=== PATIENT | female | born 1950 | race Asian ===

== ENCOUNTER → 2017-02-14 | Outpatient (CLI) | payer BC ==
[~2017-02-14] MED LIST: GABA300C16 PO; GLYB5TAB3 PO; IODIXANOL LOCM 100 ML BTL ONE; METF1000 PO; SIMV20TA PO; SOD CHLORIDE 0.9% 100 ML ONE; VALS160T20 PO
[2017-02-14 12:17] LABS: ADD SCAN DIFF NO
[2017-02-14 12:26] LABS: BASOPHIL # 0.1 10^3/ul (0.0-0.1); BASOPHILS % 0.9 % (0.0-2.0); EOSINOPHILS # 0.1 10^3/ul (0.0-0.5); HEMATOCRIT 33.3 % (37.0-47.0); HEMOGLOBIN 10.5 g/dl (12.0-16.0); LYMPHOCYTES # 2.1 10^3/ul (0.8-2.9); LYMPHOCYTES % 39.6 % (15.0-51.0); MEAN CORPUSCULAR HEMOGLOBIN 27.3 pg (29.0-33.0); MEAN CORPUSCULAR HGB CONC 31.5 g/dl (32.0-37.0); MEAN CORPUSCULAR VOLUME 86.7 fl (82.0-101.0); MEAN PLATELET VOLUME 9.4 fl (7.4-10.4); MONOCYTE # 0.3 10^3/ul (0.3-0.9); MONOCYTES % 5.4 % (0.0-11.0); NEUTROPHIL # 2.8 10^3/ul (1.6-7.5); NEUTROPHILS % 51.9 % (39.0-77.0); PLATELET COUNT 279 10^3/UL (140-415); RED BLOOD COUNT 3.84 10^6/ul (4.20-5.40); RED CELL DISTRIBUTION WIDTH 13.2 % (11.5-14.5); WHITE BLOOD COUNT 5.4 10^3/ul (4.8-10.8)
[2017-02-14 12:38] LABS: ALBUMIN/GLOBULIN RATIO 1.37; BILIRUBIN,INDIRECT 0.4 mg/dl (0-1.1); BILIRUBIN,TOTAL 0.4 mg/dl (0.2-1.3); CALCIUM 9.4 mg/dl (8.4-10.2); CHOL/HDL RATIO 5.1 RATIO; CREATININE 0.71 mg/dl (0.44-1.00); POTASSIUM 4.3 mmol/L (3.5-5.1); TOTAL PROTEIN 6.9 g/dl (6.1-8.1)
== END | disposition home or self-care (01) ==
LOC: LAB 11:48
PROVIDERS: ATTEND Internal Medicine
DX: E11.9 Type 2 diabetes mellitus without complications (principal); I10 Essential (primary) hypertension
CPT/HCPCS: 80053; 80061; 83036; 85025

== ENCOUNTER → 2017-04-10 | Outpatient (CLI) | payer BC ==
[~2017-04-10] MED LIST changes: -IODIXANOL LOCM 100 ML BTL ONE; -SOD CHLORIDE 0.9% 100 ML ONE
--- NOTE | 2017-04-10 20:11 | RADRPT ---
PROCEDURE: XR Chest. CLINICAL INDICATION: Shortness of breath, pneumonia TECHNIQUE: PA and lateral chest x-ray. COMPARISON: 02/19/2015 chest radiograph. FINDINGS: Minimal linear atelectasis in the left midlung and right lung base are unchanged. No pleural effusion or pneumothorax. The cardiomediastinal silhouette is unremarkable. The osseous structures are unremarkable. Vascular calcifications of the aorta are present compatible with atherosclerosis. IMPRESSION: No evidence of acute air space infiltrates. Unchanged from the previous examination. RPTAT: AADD .Gurmeet Leon MD, MD Date Time Electronically viewed and signed by .Gurmeet Leon MD, MD on 04/10/2017 20:11 .B/
== END | disposition home or self-care (01) ==
LOC: RAD 11:51
PROVIDERS: ATTEND Internal Medicine
DX: J18.9 Pneumonia, unspecified organism (principal); R06.02 Shortness of breath
CPT/HCPCS: 71020

== ENCOUNTER → 2017-05-03 | Outpatient (CLI) | payer BC ==
[2017-05-03 11:56] LABS: ADD SCAN DIFF NO
[2017-05-03 11:59] LABS: BASOPHILS % 0.8 % (0.0-2.0); EOSINOPHILS # 0.1 10^3/ul (0.0-0.5); EOSINOPHILS % 2.7 % (0.0-7.0); HEMATOCRIT 31.6 % (37.0-47.0); HEMOGLOBIN 10.3 g/dl (12.0-16.0); LYMPHOCYTES # 1.9 10^3/ul (0.8-2.9); LYMPHOCYTES % 35.8 % (15.0-51.0); MEAN CORPUSCULAR HEMOGLOBIN 28.1 pg (29.0-33.0); MEAN CORPUSCULAR HGB CONC 32.6 g/dl (32.0-37.0); MEAN CORPUSCULAR VOLUME 86.1 fl (82.0-101.0); MEAN PLATELET VOLUME 9.4 fl (7.4-10.4); MONOCYTE # 0.3 10^3/ul (0.3-0.9); MONOCYTES % 6.3 % (0.0-11.0); NEUTROPHIL # 2.9 10^3/ul (1.6-7.5); NEUTROPHILS % 54.2 % (39.0-77.0); PLATELET COUNT 264 10^3/UL (140-415); RED BLOOD COUNT 3.67 10^6/ul (4.20-5.40); RED CELL DISTRIBUTION WIDTH 12.9 % (11.5-14.5); WHITE BLOOD COUNT 5.3 10^3/ul (4.8-10.8)
[2017-05-03 12:19] LABS: ALBUMIN 4.5 g/dl (3.3-4.9); ALBUMIN/GLOBULIN RATIO 1.87; BILIRUBIN,INDIRECT 0.4 mg/dl (0-1.1); BILIRUBIN,TOTAL 0.4 mg/dl (0.2-1.3); CALCIUM 9.2 mg/dl (8.4-10.2); CHOL/HDL RATIO 4.8 RATIO; CREATININE 0.79 mg/dl (0.44-1.00); POTASSIUM 4.4 mmol/L (3.5-5.1); TOTAL PROTEIN 6.9 g/dl (6.1-8.1)
== END | disposition home or self-care (01) ==
LOC: LAB 11:25
PROVIDERS: ATTEND Internal Medicine
DX: E11.9 Type 2 diabetes mellitus without complications (principal); E78.5 Hyperlipidemia, unspecified
CPT/HCPCS: 80053; 80061; 83036; 85025

== ENCOUNTER → 2017-11-27 | Outpatient (CLI) | END | disposition home or self-care (01) ==

== ENCOUNTER → 2018-01-22 | Outpatient (CLI) | END | disposition home or self-care (01) ==

== ENCOUNTER → 2018-02-04 | Outpatient (CLI) | END | disposition home or self-care (01) ==

== ENCOUNTER → 2018-02-19 | Outpatient (CLI) | END | disposition home or self-care (01) ==

== ENCOUNTER → 2018-03-21 | Outpatient (CLI) | END | disposition home or self-care (01) ==

== ENCOUNTER → 2018-04-03 | Outpatient (CLI) | END | disposition home or self-care (01) ==

== ENCOUNTER → 2018-04-08 | Outpatient (CLI) | END | disposition home or self-care (01) ==

== ENCOUNTER → 2018-05-30 | Outpatient (CLI) | END | disposition home or self-care (01) ==

== ENCOUNTER → 2018-06-11 | Outpatient (CLI) | END | disposition home or self-care (01) ==

== ENCOUNTER → 2018-08-02 | Outpatient (CLI) | END | disposition home or self-care (01) ==

== ENCOUNTER → 2018-08-16 | Outpatient (CLI) | END | disposition home or self-care (01) ==

== ENCOUNTER → 2018-08-26 | Outpatient (CLI) | END | disposition home or self-care (01) ==

== ENCOUNTER 2018-08-29 06:05 | Day surgery (SDC) | END 2018-08-29 11:11 | disposition home or self-care (01) ==

== ENCOUNTER → 2018-10-03 | Outpatient (CLI) | END | disposition home or self-care (01) ==

== ENCOUNTER → 2018-12-04 | Outpatient (CLI) | payer BC ==
[~2018-12-04] MED LIST changes: -GLYB5TAB3 PO; +KEFLEX; +LOSA1TAB22 PO; +LOSA50TA14 PO; -METF1000 PO; +METF100010 PO
== END | disposition home or self-care (01) ==
LOC: LAB 14:21
PROVIDERS: ATTEND Internal Medicine
DX: E11.8 Type 2 diabetes mellitus with unspecified complications (principal); E78.5 Hyperlipidemia, unspecified; D64.9 Anemia, unspecified
CPT/HCPCS: 80053; 80061; 83036; 85025

== ENCOUNTER 2018-12-07 19:54 | Inpatient (IN) | payer BC ==
[~2018-12-07] VITALS: Ht 157.5 cm; Wt 64.0 kg
[~2018-12-07 19:54] MED LIST changes: -LOSA1TAB22 PO; -LOSA50TA14 PO
[2018-12-07 19:59] VITALS: Ht 157.5 cm; Wt 64.0 kg
[2018-12-07] MEDS ORDERED: CEFTRIAXONE 1 GM/50 ML (PMX) 50 ML IVPB STA (20:23)
[2018-12-07] MEDS ORDERED: SODIUM CHLORIDE 0.9% 1L BAG IV* STA (20:23)
[2018-12-07] MEDS ORDERED: ONDANSETRON 4 MG INJ IV PRN (21:00)
[2018-12-07] MEDS ORDERED: ACETAMINOPHEN 325 MG TAB PO PRN (21:00)
--- NOTE | 2018-12-07 22:12 | ERD ---
ER Documentation Chief Complaint Chief Complaint fever tonight took tylenol 325mg x2 @1915, lower AP HPI Patient is a 68-year-old female with diabetes who presents with pyelonephritis. The patient was sent by Dr. Sims for admission for pyelonephritis. The patient works as a nurse on the telemetry floor. She has fevers and tried Tylenol. She was shivering. She has lower abdominal pain and back pain for the past few days. ROS All systems reviewed and are negative except as per history of present illness. Medications Home Meds Reported Medications [Keflex] No Conflict Check 08/29/18 Gabapentin* (Gabapentin*) 300 Mg Capsule, 300 MG PO TID 02/28/14 Metformin Hcl* (Metformin Hcl*) 1,000 Mg Tablet, 1000 MG PO BID 02/18/14 Simvastatin* (Zocor*) 20 Mg Tablet, 40 MG PO DAILY 02/05/12 Valsartan* (Diovan*) 160 Mg Tablet, 80 MG PO DAILY 02/05/12 Allergies Allergies: Coded Allergies: No Known Drug Allergies (Verified Allergy, Unknown, 02/25/15) PMhx/Soc History of Surgery: Yes (ADENOIDECTOMY; HYSTERECTOMY; EXP LAP; B/L KNEE REPLACEMENT) Anesthesia Reaction: No Hx Neurological Disorder: No Hx Respiratory Disorders: No Hx Cardiac Disorders: Yes (HTN; HIGH CHOLESTEROL) Hx Psychiatric Problems: No Hx Miscellaneous Medical Probl: No Hx Alcohol Use: No Hx Substance Use: No Hx Tobacco Use: No Smoking Status: Never smoker FmHx Family History: No diabetes Physical Exam Vitals Vital Signs Date Temp Pulse Resp B/P (MAP) Pulse Ox O2 O2 Flow FiO2 Time Delivery Rate 12/07/18 99.3 113 20 136/57 100 19:59 (83) Physical Exam Const: No acute distress Head: Atraumatic Eyes: Normal Conjunctiva ENT: Normal External Ears, Nose and Mouth. Neck: Full range of motion. No meningismus. Resp: Clear to auscultation bilaterally Cardio: Regular rate and rhythm, no murmurs Abd: Soft, non tender, non distended. Normal bowel sounds Skin: No petechiae or rashes Back: No midline or flank tenderness Ext: No cyanosis, or edema Neur: Awake and alert Psych: Normal Mood and Affect Result Diagram: 12/07/18213212/07/182132 Results 24 hrs Laboratory Tests Test 12/07/18 21:33 12/07/18 21:35 White Blood Count 7.2 10^3/ul Red Blood Count 3.56 10^6/ul Hemoglobin 9.5 g/dl Hematocrit 29.8 % Mean Corpuscular Volume 83.7 fl Mean Corpuscular Hemoglobin 26.7 pg Mean Corpuscular Hemoglobin Concent 31.9 g/dl Red Cell Distribution Width 13.7 % Platelet Count 250 10^3/UL Mean Platelet Volume 9.1 fl Immature Granulocytes % 0.400 % Neutrophils % 79.3 % Lymphocytes % 16.6 % Monocytes % 1.5 % Eosinophils % 1.8 % Basophils % 0.4 % Nucleated Red Blood Cells % 0.0 /100WBC Immature Granulocytes # 0.030 10^3/ul Neutrophils # 5.7 10^3/ul Lymphocytes # 1.2 10^3/ul Monocytes # 0.1 10^3/ul Eosinophils # 0.1 10^3/ul Basophils # 0.0 10^3/ul Nucleated Red Blood Cells # 0.0 10^3/ul Prothrombin Time 12.1 Sec Prothrombin Time Ratio 0.9 INR International Normalized Ratio 0.89 Activated Partial Thromboplast Time 28.5 Sec Urine Color YELLOW Urine Clarity CLOUDY Urine pH 5.0 Urine Specific [place] 1.010 Urine Ketones NEGATIVE mg/dL Urine Nitrite NEGATIVE mg/dL Urine Bilirubin NEGATIVE mg/dL Urine Urobilinogen NEGATIVE mg/dL Urine Leukocyte Esterase 2+ Jimena/ul Urine Microscopic RBC 1 /HPF Urine Microscopic WBC 43 /HPF Urine Bacteria FEW /HPF Urine Hemoglobin NEGATIVE mg/dL Urine Glucose NEGATIVE mg/dL Urine Total Protein NEGATIVE mg/dl Sodium Level 135 mmol/L Potassium Level 4.2 mmol/L Chloride Level 103 mmol/L Carbon Dioxide Level 24 mmol/L Anion Gap 8 Blood Urea Nitrogen 18 mg/dl Creatinine 0.84 mg/dl Est Glomerular Filtrat Rate mL/min > 60 mL/min Glucose Level 177 mg/dl Calcium Level 9.4 mg/dl Total Bilirubin 0.4 mg/dl Direct Bilirubin 0.00 mg/dl Indirect Bilirubin 0.4 mg/dl Aspartate Amino Transf (AST/SGOT) 17 IU/L Alanine Aminotransferase (ALT/SGPT) 19 IU/L Alkaline Phosphatase 73 IU/L Troponin I < 0.012 ng/ml Total Protein 7.3 g/dl Albumin 4.0 g/dl Globulin 3.30 g/dl Albumin/Globulin Ratio 1.21 POC Venous Lactate 3.2 mmol/L Current Medications Medications Dose Sig/[place] Start Time Status Last (Trade) Ordered Route PRN Stop Time Admin Dose Reason Admin Sodium 1,940 ml BOLUS OVER 2 12/07/18 DC Chloride HOURS STAT 20:23 (NS) IV* 12/07/18 20:25 Ceftriaxone 50 ml @ ONCE STAT 12/07/18 DC 12/07/18 Sodium 100 mls/hr IVPB 20:23 21:57 12/07/18 20:52 Ondansetron 4 mg BRIDGE ORDER 12/07/18 HCl (Zofran PRN IV 21:00 Inj) NAUSEA/VOMITI 12/08/18 20:59 NG 650 mg ER BRIDGE 12/07/18 12/07/18 Acetaminophen PRN PO 21:00 21:23 (Tylenol .MILD PAIN 12/08/18 20:59 Tab) 1-3 OR TEMP Procedures/MDM EKG read by me: Rate/Rhythm: Regular rate and rhythm at a normal rate Intervals: Normal Impression: No evidence of ischemia or arrhythmia Chest x-ray read by radiology. Sepsis Documentation: Patient's infectious symptoms have not stabilized and the patient is at risk of rapid decompensation. The patient will be admitted for careful hydration, antibiotic therapy, and infectious source control. SEVERE SEPSIS CRITERIA: Infectious source: Pyelonephritis End organ damage indicated by: Lactate greater than 2 SEPSIS MANAGEMENT Time of recognition of sepsis: 2132. Time of recognition of severe sepsis: 2132. Time of recognition of septic shock: No septic shock at this time. 3 HOUR BUNDLE Blood cultures x 2 before broad-spectrum antibiotics: Yes 30 ml/kg NS bolus completed Initial lactate 3.2 Repeat lactate pending SEPTIC SHOCK ASSESSMENT: No lactic acid > 4.0 No persistent hypotension (SBP < 90 or 40 mmHg drop, MAP < 65) despite 30 mL/kg IV fluid bolus VOLUME REASSESSMENT FOR SEPTIC SHOCK: No septic shock at this time PERSISTENT HYPOTENSION TREATMENT: Comfort care no Central line not Required Vasopressor started not required I considered further perfusion assessment with CVP measurement, SCVO2, bedside ultrasound volume assessment, passive leg raise, trial of further fluid bolus. And proceeded with 30 ml/kg fluid bolus of NSS, broad spectrum antibiotics, and admission. The patient will be admitted to the care of Dr. Sims the primary doctor to a medical surgical bed. CRITICAL CARE Critical care time 35 minutes Emergent fluid management while maintaining close respiratory support. Provision of immediate and broad-spectrum antibiotic therapy. Simultaneous assessment for possible sources in order to direct targeted therapy. Consideration for invasive and chemical support to prevent cardiopulmonary collapse. Critical care time is independent of procedures performed. Departure Diagnosis: Primary Impression: Severe sepsis Additional Impression: Pyelonephritis Condition: CHAPIN Mccabe MD Dec 07, 2018 22:12
[2018-12-07] MEDS ORDERED: LOSA1TAB22 PO (23:38)
[2018-12-07] MEDS ORDERED: DEXTROSE 50% 50 ML SYRINGE IV PRN ×2 (23:45)
[2018-12-07] MEDS ORDERED: GLUCOSE GEL 15 GRAM TUBE BUCCAL PRN (23:45)
[2018-12-07] MEDS ORDERED: GLUCOSE GEL 15 GRAM TUBE PO PRN ×2 (23:45)
[2018-12-07] MEDS ORDERED: GLUCAGON 1 MG INJ IM PRN (23:45)
[2018-12-07] MEDS ORDERED: LOSA50TA14 PO (23:49)
[2018-12-08] MEDS ORDERED: ZOLPIDEM 5 MG TAB PO PRN
[2018-12-08] MEDS ORDERED: ONDANSETRON 4 MG INJ IV PRN
[2018-12-08] MEDS ORDERED: morphine 4 MG/ML VIAL IV PRN
[2018-12-08 00:07] VITALS: BP 97/54; PULSE 84; RESP 18
[2018-12-08] MEDS: SOD CHLORIDE 0.45% 1,000 ML IV SCH ×2 (00:20→14:45)
[2018-12-08] MEDS: ACCU-CHEK XX SCH (02:00)
[2018-12-08 08:02] VITALS: BP 116/59; PULSE 81; RESP 18
[2018-12-08] MEDS: GABAPENTIN 300 MG CAP PO SCH ×3 (08:42→20:16)
[2018-12-08] MEDS: LOSARTAN 50 MG TAB PO SCH (08:43)
[2018-12-08] MEDS: INSULIN ASPART [NOVOLOG] 3 ML PEN SC SCH ×4 (08:46→20:18)
[2018-12-08] MEDS ORDERED: NON-FORMULARY/PATIENT OWN MED (Simvastatin* (Zocor*) 40 MG) PO SCH (09:00)
[2018-12-08] MEDS: ACETAMINOPHEN 500 MG TAB PO PRN (13:06)
--- NOTE | 2018-12-08 13:30 | HP ---
DATE OF ADMISSION: 12/07/2018 CHIEF COMPLAINT AND HISTORY OF PRESENT ILLNESS: The patient is a 68-year-old lady, diabetic, hyperte nsive, well known to me for the past several years, presenting with severe fever, chills and flank pa ins and patient was evaluated in the emergency room and was admitted. REVIEW OF SYSTEMS: HEAD: The patient has a recent frontal headaches, visual symptoms, including some blurriness, some p ain over the eyes. It has been progressively getting worse. Pain in the eyes with some blurriness r ecently. No history of glaucoma. ENT: No sinusitis, tonsillitis, or hearing loss. NECK: No history of thyroid disease. CHEST: No bronchitis, . CARDIOVASCULAR: No chest pain, palpitations, shortness of breath. GASTROINTESTINAL: History of perforated bowel several years ago with laparotomy, details not clear. GENITOURINARY: History of recurrent urinary tract infection with pyelonephritis with prior history o f E. coli with extended-spectrum beta-lactamase. workup has been so far unremarkable. 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 She also had a right knee replacement by Dr. Mittal 3 years ago. She has had diabetes for s everal years, along with hypertension and hyperlipidemia. FAMILY HISTORY: Noncontributory. ALLERGIES: NO KNOWN ALLERGIES. MEDICATIONS: Include: 1. Metformin 1000 mg b.i.d. 2. Gabapentin 300 mg t.i.d. 3. Zocor 40 mg daily. 4. Losartan 50 x 12.5, one tablet daily. PHYSICAL EXAMINATION: GENERAL: The patient is an average-built female who is presently in no acute distress. VITAL SIGNS: Temperature 98.2, blood pressure 160/ , O2 saturation 98% on room air. HEENT: Head normocephalic. Mild pallor without cyanosis. Tongue is coated, dry. NECK: Supple. No thyromegaly, or lymphadenopathy. CHEST: Clinically clear. HEART: S1, S2 with no definite gallops. ABDOMEN: Soft, fullness in epigastrium. Bowel sounds are active. EXTREMITIES: No edema. Mild flank tenderness present bilaterally. NEUROLOGIC: No localizing or lateralizing signs. PELVIC, RECTAL, BREAST: Deferred at patient's request. LABORATORY DATA: Initial WBC count is 7.2, hematocrit 29.8, platelet count of 250,000. Sodium 139, potassium 4.5, BUN 14, creatinine 0.85. Serum lactate of 3.2. Chest x-ray shows atelectasis in the left mid lung. IMPRESSION: 1. Patient likely has acute pyelonephritis. 2. Diabetes mellitus type 2, well controlled. 3. Hypertension. 4. Chronic anemia, likely anemia of heart disease. 5. Status post carotid endarterectomy. 6. Hyperlipidemia. PLAN: We will continue the patient on intravenous Rocephin. The patient also has been complaining o f recent headaches. We will proceed to get CT of the brain and consider neurology evaluation if nece ssary. Await urine cultures and decide regarding the antibiotic. Dictated By: PENELOPE PRAKASH MD, SR/RADHA Conf#: [id number] DID#: [id number]
[2018-12-08 15:23] VITALS: BP 127/59; PULSE 90; RESP 18
[2018-12-08] MEDS: CEFTRIAXONE 1 GM/50 ML (PMX) 50 ML IVPB SCH (20:15)
[2018-12-08] MEDS: ATORVASTATIN 20 MG TAB PO SCH (20:15)
[2018-12-08 20:36] VITALS: BP 128/60; PULSE 82; RESP 18
[2018-12-09] MEDS: ACCU-CHEK XX SCH (02:02)
[2018-12-09 02:09] VITALS: BP 137/65; PULSE 84; RESP 18
[2018-12-09] MEDS: SOD CHLORIDE 0.45% 1,000 ML IV SCH ×2 (02:40→22:41)
[2018-12-09 07:21] VITALS: BP 139/65; PULSE 85; RESP 18
[2018-12-09] MEDS: LOSARTAN 50 MG TAB PO SCH (07:57)
[2018-12-09] MEDS: INSULIN ASPART [NOVOLOG] 3 ML PEN SC SCH ×4 (08:02→20:52)
[2018-12-09] MEDS: GABAPENTIN 300 MG CAP PO SCH ×3 (08:06→20:49)
[2018-12-09 13:48] VITALS: BP 150/65; PULSE 91; RESP 18
[2018-12-09] MEDS ORDERED: BARIUM SULF 2% 450 ML BTL (BERRY SMOOTHIE) PO ONE (15:00)
[2018-12-09] MEDS: ACETAMINOPHEN 500 MG TAB PO PRN (15:57)
[2018-12-09] MEDS ORDERED: SOD CHLORIDE 0.9% 100 ML ONE (16:16)
[2018-12-09] MEDS ORDERED: IOHEXOL 300MG/ML 150 ML BTL ONE (16:16)
[2018-12-09 20:12] VITALS: BP 130/60; PULSE 75; RESP 18
[2018-12-09] MEDS: ATORVASTATIN 20 MG TAB PO SCH (20:49)
[2018-12-09] MEDS: CEFTRIAXONE 1 GM/50 ML (PMX) 50 ML IVPB SCH (20:49)
[2018-12-09 20:50] VITALS: BP 196/92; PULSE 78
[2018-12-10] MEDS: ACCU-CHEK XX SCH (02:08)
[2018-12-10 02:17] VITALS: BP 129/72; PULSE 75; RESP 18
[2018-12-10 07:45] VITALS: BP 139/73; PULSE 79; RESP 18
[2018-12-10] MEDS: ENOXAPARIN 30 MG/0.3 ML SYG SC SCH ×2 (09:00→10:59)
[2018-12-10] MEDS: GABAPENTIN 300 MG CAP PO SCH ×3 (09:00→20:54)
[2018-12-10] MEDS: LOSARTAN 50 MG TAB PO SCH (09:08)
[2018-12-10] MEDS: INSULIN ASPART [NOVOLOG] 3 ML PEN SC SCH ×4 (09:13→21:01)
--- NOTE | 2018-12-10 10:12 | CONS ---
Assessment/Plan Assessment/Plan Hospital Course (Demo Recall) 1) UTI due to e.coli +ESBL and possible kidney involvement due to her R flank pain CT abd/pelvis does not show hydronephrosis d/c ceftriaxone and start merrem this e.coli is sensitive to cipro and levo and so can switch to them when patient is ready for d/c I would give a 14 day course for this pt states she was treated for an UTI 2-3 months ago but could not remember what antibiotic she was on start probiotic 2) DM hopefully with effective antibiotic for her infection her sugars will come under better control 3) HTN 4) Hx of DVT from a picc line would avoid picc line at this time Consultation Date/Type/Reason Admit Date/Time Dec 07, 2018 at 20:34 Date of Consultation: Dec 10, 2018 Type of Consult ID Date/Time of Note DATE: 12/10/18 TIME: 10:04 Hx of Present Illness pt had some R flank heaviness for a few days then developed low grade fevers for a few days then a higher fever and she was then admitted to hospital she also had urine frequency but no dysuria. 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 line Home Meds Reported Medications Losartan Potassium* (Losartan Potassium*) 50 Mg Tablet, 50 MG PO DAILY, TAB 12/07/18 Losartan-Hydrochlorothiazide (Losartan-HCTZ) 50-12.5 Mg Tab, 1 TAB PO DAILY, TAB 12/07/18 Gabapentin* (Gabapentin*) 300 Mg Capsule, 300 MG PO TID 02/28/14 Metformin Hcl* (Metformin Hcl*) 1,000 Mg Tablet, 1000 MG PO BID 02/18/14 Simvastatin* (Zocor*) 20 Mg Tablet, 40 MG PO DAILY 02/05/12 Discontinued Reported Medications [Keflex] No Conflict Check 08/29/18 Valsartan* (Diovan*) 160 Mg Tablet, 80 MG PO DAILY 02/05/12 Medications Current Medications Gabapentin (Neurontin) 300 mg TID PO Last administered on 12/09/18at 20:49; Admin Dose 300 MG; Start 12/08/18 at 09:00 Atorvastatin Calcium (Lipitor) 20 mg DAILY@21 PO Last administered on 12/09/18at 20:49; Admin Dose 20 MG; Start 12/08/18 at 21:00 Ondansetron HCl (Zofran Inj) 4 mg Q4H PRN IV NAUSEA AND/OR VOMITING; Start 12/08/18 at 00:00 Acetaminophen (Tylenol Tab) 500 mg Q4H PRN PO MILD PAIN(1-3)OR ELEVATED TEMP Last administered on 12/09/18at 15:57; Admin Dose 500 MG; Start 12/08/18 at 00:00 Morphine Sulfate (morphine) 4 mg Q4H PRN IV SEVERE PAIN LEVEL 7-10; Start 12/08/18 at 00:00 Sodium Chloride 1,000 ml @ 75 mls/hr [id number] IV Last administered on 12/09/18at 22:41; Admin Dose 75 MLS/HR; Start 12/08/18 at 00:00 Zolpidem Tartrate (Ambien) 5 mg HS PRN PO INSOMNIA; Start 12/08/18 at 00:00 Diagnostic Test (Pha) (Accu-Chek) 1 ea 02 XX Last administered on 12/10/18at 02:08; Admin Dose 1 EA; Start 12/08/18 at 02:00 Insulin Aspart (Novolog Insulin Pen) NOVOLOG *MILD* ALGORITHM WITH MEALS BEDTIME SC Last administered on 12/10/18at 09:13; Admin Dose 4 UNIT; Start 12/08/18 at 07:50 Miscellaneous Information 1 ea NOTE XX ; Start 12/07/18 at 23:45 Glucose (Glutose) 15 gm Q15M PRN PO DECREASED GLUCOSE; Start 12/07/18 at 23:45 Glucose (Glutose) 22.5 gm Q15M PRN PO DECREASED GLUCOSE; Start 12/07/18 at 23:45 Dextrose (D50w Syringe) 25 ml Q15M PRN IV DECREASED GLUCOSE; Start 12/07/18 at 23:45 Dextrose (D50w Syringe) 50 ml Q15M PRN IV DECREASED GLUCOSE; Start 12/07/18 at 23:45 Glucagon (Glucagen) 1 mg Q15M PRN IM DECREASED GLUCOSE; Start 12/07/18 at 23:45 Glucose (Glutose) 15 gm Q15M PRN BUCCAL DECREASED GLUCOSE; Start 12/07/18 at 23:45 Losartan Potassium (Cozaar) 50 mg DAILY PO Last administered on 12/10/18at 09:08; Admin Dose 50 MG; Start 12/08/18 at 09:00 Enoxaparin Sodium (Lovenox) 30 mg DAILY SC ; Start 12/10/18 at 09:00 Meropenem/Sodium Chloride 50 ml @ 100 mls/hr Q8 IVPB ; Start 12/10/18 at 14:00; Status UNV Allergies: Coded Allergies: No Known Drug Allergies (Verified Allergy, Unknown, 02/25/15) Past Surgical History haley TKR, R CEA Social History Smoking Status: Never smoker Exam/Review of Systems Exam Vitals Vital Signs Date Temp Pulse Resp B/P (MAP) Pulse Ox O2 O2 Flow FiO2 Time Delivery Rate 12/10/18 98.1 79 18 139/73 98 Room Air 07:45 (95) Intake and Output 12/09/18 12/09/18 12/10/18 1414:59 22:59 06:59 IntakeIntake Total 400 ml 1230 ml BalanceBalance 400 ml 1230 ml Constitutional: alert Eyes: nl sclera ENMT: mucosa pink and moist Neck: supple Respiratory: clear to auscultation Cardiovascular: regular rate and rhythm Gastrointestinal: soft, non-tender, other (mild R CVAT) Extremities: other (1+ pitting edema to LE, no calf tenderness) Neurological: other (non focal) Results Result Diagram: 12/10/18 0506 12/10/18 0506 Results 24hrs Laboratory Tests Test 12/09/18 13:09 12/09/18 19:14 12/09/18 20:47 12/10/18 02:04 Bedside Glucose 227 H 164 255 H 340 H Test 12/10/18 05:06 12/10/18 08:50 White Blood Count 5.4 Red Blood Count 3.50 L Hemoglobin 9.5 L Hematocrit 30.2 L Mean Corpuscular 86.3 Volume Mean Corpuscular 27.1 L Hemoglobin Mean Corpuscular 31.5 L Hemoglobin Concent Red Cell 13.3 Distribution Width Platelet Count 288 Mean Platelet Volume 9.7 Immature 0.600 H Granulocytes % Neutrophils % 50.3 Lymphocytes % 35.9 Monocytes % 9.5 Eosinophils % 3.0 Basophils % 0.7 Nucleated Red Blood 0.0 Cells % Immature 0.030 Granulocytes # Neutrophils # 2.7 Lymphocytes # 1.9 Monocytes # 0.5 Eosinophils # 0.2 Basophils # 0.0 Nucleated Red Blood 0.0 Cells # Sodium Level 139 Potassium Level 4.7 Chloride Level 107 Carbon Dioxide Level 27 Anion Gap 5 Blood Urea Nitrogen 13 Creatinine 0.77 Est Glomerular > 60 Filtrat Rate mL/min Glucose Level 282 H Calcium Level 9.4 Magnesium Level 2.0 Bedside Glucose 266 H Medications Medication Current Medications Gabapentin (Neurontin) 300 mg TID PO Last administered on 12/09/18 20:49; Admin Dose 300 MG; Start 12/08/18 at 09:00 Atorvastatin Calcium (Lipitor) 20 mg DAILY@21 PO Last administered on 12/09/18 20:49; Admin Dose 20 MG; Start 12/08/18 at 21:00 Ondansetron HCl (Zofran Inj) 4 mg Q4H PRN IV NAUSEA AND/OR VOMITING; Start 12/08/18 at 00:00 Acetaminophen (Tylenol Tab) 500 mg Q4H PRN PO MILD PAIN(1-3)OR ELEVATED TEMP Last administered on 12/09/18at 15:57; Admin Dose 500 MG; Start 12/08/18 at 00:00 Morphine Sulfate (morphine) 4 mg Q4H PRN IV SEVERE PAIN LEVEL 7-10; Start 12/08/18 at 00:00 Sodium Chloride 1,000 ml @ 75 mls/hr [id number] IV Last administered on 12/09/18 22:41; Admin Dose 75 MLS/HR; Start 12/08/18 at 00:00 Zolpidem Tartrate (Ambien) 5 mg HS PRN PO INSOMNIA; Start 12/08/18 at 00:00 Diagnostic Test (Pha) (Accu-Chek) 1 ea 02 XX Last administered on 12/10/18 02:08; Admin Dose 1 EA; Start 12/08/18 at 02:00 Insulin Aspart (Novolog Insulin Pen) NOVOLOG *MILD* ALGORITHM WITH MEALS BEDTIME SC Last administered on 12/10/18 09:13; Admin Dose 4 UNIT; Start at 07:50 Miscellaneous Information 1 ea NOTE XX ; Start 12/07/18 at 23:45 Glucose (Glutose) 15 gm Q15M PRN PO DECREASED GLUCOSE; Start 12/07/18 at 23:45 Glucose (Glutose) 22.5 gm Q15M PRN PO DECREASED GLUCOSE; Start 12/07/18 at 23:45 Dextrose (D50w Syringe) 25 ml Q15M PRN IV DECREASED GLUCOSE; Start 12/07/18 at 23:45 Dextrose (D50w Syringe) 50 ml Q15M PRN IV DECREASED GLUCOSE; Start 12/07/18 at 23:45 Glucagon (Glucagen) 1 mg Q15M PRN IM DECREASED GLUCOSE; Start 12/07/18 at 23:45 Glucose (Glutose) 15 gm Q15M PRN BUCCAL DECREASED GLUCOSE; Start 12/07/18 at 23:45 Losartan Potassium (Cozaar) 50 mg DAILY PO Last administered on 12/10/18at 09:08; Admin Dose 50 MG; Start 12/08/18 at 09:00 Enoxaparin Sodium (Lovenox) 30 mg DAILY SC ; Start 12/10/18 at 09:00 Meropenem/Sodium Chloride 50 ml @ 100 mls/hr Q8 IVPB ; Start 12/10/18 at 14:00; Status UNV PIERRE FERRER MD Dec 10, 2018 10:12
[2018-12-10] MEDS: SOD CHLORIDE 0.45% 1,000 ML IV SCH (10:57)
--- NOTE | 2018-12-10 13:02 | PN ---
DATE: 12/09/2018 SUBJECTIVE: The patient complains of mild headache. No nausea, vomiting. Continues with right flan k pain. Denies any dysuria. PHYSICAL EXAMINATION: VITAL SIGNS: Temperature 99.4, blood pressure 150/65, O2 saturation 99% on room air. HEENT: Mild pallor without cyanosis. LUNGS: Revealed decreased breath sounds at right base. HEART: S1, S2 with no definite gallops. ABDOMEN: Soft, nontender. Mild right flank tenderness. EXTREMITIES: No edema. Homans negative. LABORATORY DATA: Blood glucose levels are 291, 223 and 227 today. MICROBIOLOGY: Urine cultures preliminary: Gram-negative rods. Blood cultures are negative. DIAGNOSTIC DATA: CT of the brain is unremarkable. IMPRESSION: 1. Flank pains with dysuria, acute pyelonephritis. 2. Diabetes mellitus type 2, uncontrolled, probably secondary infection. 3. Hypertension. 4. Chronic anemia. 5. Status post carotid endarterectomy. 6. Hyperlipidemia. PLAN: We will continue Rocephin for now. We will obtain a CT of the abdomen and pelvis with IV cont rast after starting on IV half normal saline. We will also consult with Dr. Haynes from ID standpoint. Dictated By: PENELOPE PRAKASH MD SR/NTS Conf#: [id number] DID#: [id number]
[2018-12-10 14:22] VITALS: BP 147/63; PULSE 82; RESP 20
--- NOTE | 2018-12-10 14:36 | PN ---
DATE: 12/10/2018 SUBJECTIVE: Patient continues with right flank pains. Dr. Haynes' ID consultation greatly appreciated . PHYSICAL EXAMINATION: VITAL SIGNS: Temperature 98.1, blood pressure 139/73, O2 saturation 98% on room air. LUNGS: Clinically clear. ABDOMEN: Flank pains, flank tenderness on the right. EXTREMITIES: No edema. LABORATORY DATA: WBC 5.4, hematocrit 30.2, potassium 4.7, glucose 266 and 279. IMPRESSION: Urine cultures growing Escherichia coli, ESBL 50,000 colony count, MDR. IMPRESSION: 1. Pyelonephritis with Escherichia coli extended-spectrum beta-lactamase. Likely some kidney involv ement because of right flank pain. 2. Diabetes mellitus type 2, uncontrolled because of acute kidney injury. 3. Hypertension. PLAN: Will continue Merrem per Dr. Haynes. Start the patient on Lantus 10 units subcu at bedtime. Dictated By: PENELOPE PRAKASH MD SR/NTS Conf#: [id number] DID#: [id number] CC: PENELOPE PRAKASH MD;*EndCC*
[2018-12-10] MEDS: MEROPENEM 1 GM/50ML(PMX) 50 ML IVPB SCH ×2 (14:46→21:59)
[2018-12-10] MEDS: ACETAMINOPHEN 500 MG TAB PO PRN (14:50)
[2018-12-10 19:12] VITALS: BP 157/66; PULSE 78; RESP 18
[2018-12-10] MEDS ORDERED: INSULIN GLARGINE [LANTus] (100 UNITS/ML) SYG SC SCH (20:00)
[2018-12-10] MEDS: ATORVASTATIN 20 MG TAB PO SCH (20:54)
[2018-12-10] MEDS: L ACIDOPHIL/B LACTIS/B LONGUM CAPSULE PO SCH (20:54)
[2018-12-10 21:50] VITALS: BP 128/62; PULSE 80
[2018-12-11 02:37] VITALS: BP 119/58; PULSE 69; RESP 18
[2018-12-11] MEDS: SOD CHLORIDE 0.45% 1,000 ML IV SCH (02:37)
[2018-12-11] MEDS: ACCU-CHEK XX SCH (02:37)
[2018-12-11] MEDS: PANTOPRAZOLE (EC) 40 MG TAB PO SCH (06:21)
[2018-12-11] MEDS: MEROPENEM 1 GM/50ML(PMX) 50 ML IVPB SCH ×3 (06:22→22:20)
--- NOTE | 2018-12-11 07:16 | CONS ---
Assessment/Plan Assessment/Plan Hospital Course (Demo Recall) 1) UTI due to e.coli +ESBL and possible kidney involvement due to her R flank pain CT abd/pelvis does not show hydronephrosis d/c ceftriaxone and start merrem this e.coli is sensitive to cipro and levo and so can switch to them when patient is ready for d/c I would give a 14 day course for this pt states she was treated for an UTI 2-3 months ago but could not remember what antibiotic she was on start probiotic 12/11 - improved symptoms on merrem when b/p and glucose are better controlled can switch to po bactrim (this is preferred over levaquin or cipro due to c.dif concerns) continue with antibiotics thru 12/23/18 2) DM hopefully with effective antibiotic for her infection her sugars will come under better control 3) HTN 4) Hx of DVT from a picc line would avoid picc line at this time Consultation Date/Type/Reason Admit Date/Time Dec 07, 2018 at 20:34 Initial Consult Date 12/10/18 Type of Consult ID Date/Time of Note DATE: 12/11/18 TIME: 07:13 24 HR Interval Summary Free Text/Dictation pt states b/p was high yesterday and she had head pressure on R from it this a.m. b/p is better the head pressure seems to be coming back her R flank pressure/pain is improved no N, V, D breathing is ok Exam/Review of Systems Exam Vitals Vital Signs Date Temp Pulse Resp B/P (MAP) Pulse Ox O2 O2 Flow FiO2 Time Delivery Rate 12/11/18 97.9 69 18 119/58 98 Room Air 02:37 (78) Intake and Output 12/10/18 12/10/18 12/11/18 1414:59 22:59 06:59 IntakeIntake Total 1480 ml 790 ml 880 ml OutputOutput Total 1 ml BalanceBalance 1479 ml 790 ml 880 ml Constitutional: alert, oriented ENMT: mucosa pink and moist Respiratory: clear to auscultation Cardiovascular: regular rate and rhythm Gastrointestinal: soft, non-tender Results Result Diagram: 12/10/18 0506 12/10/18 0506 Results 24hrs Laboratory Tests Test 12/10/18 08:50 12/10/18 13:14 12/10/18 18:03 12/10/18 20:58 Bedside Glucose 266 H 279 H 278 H 302 H Test 12/11/18 02:33 Bedside Glucose 337 H Medications Medication Current Medications Gabapentin (Neurontin) 300 mg TID PO Last administered on 12/10/18at 20:54; Admin Dose 300 MG; Start 12/08/18 at 09:00 Atorvastatin Calcium (Lipitor) 20 mg DAILY@21 PO Last administered on 12/10/18at 20:54; Admin Dose 20 MG; Start 12/08/18 at 21:00 Ondansetron HCl (Zofran Inj) 4 mg Q4H PRN IV NAUSEA AND/OR VOMITING; Start 12/08/18 at 00:00 Acetaminophen (Tylenol Tab) 500 mg Q4H PRN PO MILD PAIN(1-3)OR ELEVATED TEMP Last administered on 12/10/18at 14:50; Admin Dose 500 MG; Start 12/08/18 at 00:00 Morphine Sulfate (morphine) 4 mg Q4H PRN IV SEVERE PAIN LEVEL 7-10; Start 12/08/18 at 00:00 Sodium Chloride 1,000 ml @ 75 mls/hr [id number] IV Last administered on 12/11/18at 02:37; Admin Dose 75 MLS/HR; Start 12/08/18 at 00:00 Zolpidem Tartrate (Ambien) 5 mg HS PRN PO INSOMNIA; Start 12/08/18 at 00:00 Diagnostic Test (Pha) (Accu-Chek) 1 ea 02 XX Last administered on 12/11/18at 02:37; Admin Dose 1 EA; Start 12/08/18 at 02:00 Insulin Aspart (Novolog Insulin Pen) NOVOLOG *MILD* ALGORITHM WITH MEALS BEDTIME SC Last administered on 12/10/18at 21:01; Admin Dose 3 UNIT; Start 12/08/18 at 07:50 Miscellaneous Information 1 ea NOTE XX ; Start 12/07/18 at 23:45 Glucose (Glutose) 15 gm Q15M PRN PO DECREASED GLUCOSE; Start 12/07/18 at 23:45 Glucose (Glutose) 22.5 gm Q15M PRN PO DECREASED GLUCOSE; Start 12/07/18 at 23:45 Dextrose (D50w Syringe) 25 ml Q15M PRN IV DECREASED GLUCOSE; Start 12/07/18 at 23:45 Dextrose (D50w Syringe) 50 ml Q15M PRN IV DECREASED GLUCOSE; Start 12/07/18 at 23:45 Glucagon (Glucagen) 1 mg Q15M PRN IM DECREASED GLUCOSE; Start 12/07/18 at 23:45 Glucose (Glutose) 15 gm Q15M PRN BUCCAL DECREASED GLUCOSE; Start 12/07/18 at 23:45 Losartan Potassium (Cozaar) 50 mg DAILY PO Last administered on 12/10/18at 09:08; Admin Dose 50 MG; Start 12/08/18 at 09:00 Enoxaparin Sodium (Lovenox) 30 mg DAILY SC Last administered on 12/10/18 10:59; Admin Dose 30 MG; Start 12/10/18 at 09:00 Meropenem/Sodium Chloride 50 ml @ 100 mls/hr Q8 IVPB Last administered on 11/23 06:22; Admin Dose 100 MLS/HR; Start 12/10/18 at 14:00 Lactobacillus Acidophilus (Florajen3 Capsule) 1 each BID PO Last administered on 12/10/18 20:54; Admin Dose 1 EACH; Start 12/10/18 at 21:00 Pantoprazole (Protonix Tab) 40 mg DAILY@06 PO Last administered on 12/11/18 06:21; Admin Dose 40 MG; Start 12/11/18 at 06:00 Insulin Glargine (Lantus) 10 units DAILY@2000 SC Last administered on 12/10/18 21:02; Admin Dose 10 UNITS; Start 12/10/18 at 20:00 Clonidine (Catapres) 0.1 mg Q4H PRN PO SBP>180 DBP>100 Last administered on 12/10/18 20:54; Admin Dose 0.1 MG; Start 12/10/18 at 20:30 PIERRE FERRER MD Dec 11, 2018 07:16
[2018-12-11 07:22] VITALS: BP 130/64; PULSE 72; RESP 18
[2018-12-11] MEDS: ACETAMINOPHEN 500 MG TAB PO PRN ×2 (07:35→22:29)
[2018-12-11] MEDS: GABAPENTIN 300 MG CAP PO SCH ×3 (08:24→20:39)
[2018-12-11] MEDS: LOSARTAN 50 MG TAB PO SCH (08:24)
[2018-12-11] MEDS: L ACIDOPHIL/B LACTIS/B LONGUM CAPSULE PO SCH ×2 (08:24→20:39)
[2018-12-11] MEDS: INSULIN ASPART [NOVOLOG] 3 ML PEN SC SCH ×4 (08:28→20:48)
[2018-12-11] MEDS: ENOXAPARIN 30 MG/0.3 ML SYG SC SCH (08:28)
[2018-12-11 16:01] VITALS: BP 135/61; PULSE 78; RESP 18
--- NOTE | 2018-12-11 17:47 | PN ---
DATE: 12/11/2018 SUBJECTIVE: The patient continues to have right flank pain, but slightly improved. Denies any fever or chills. PHYSICAL EXAMINATION VITAL SIGNS: Temperature 98.9, blood pressure 130/64. LUNGS: Clinically clear. ABDOMEN: Mild tenderness in the right flank. EXTREMITIES: No edema. LABORATORY DATA: Glucose since last night 302, 337, 308. The patient also had severe hypertension l ast night requiring clonidine. IMPRESSION: 1. Acute pyelonephritis with Escherichia coli extended-spectrum beta-lactamase. 2. Diabetes mellitus type 2, uncontrolled because of a left kidney infection. 3. Hypertension, not adequately controlled. PLAN: We will increase the Lantus dose in the night to 12 units. Will discontinue IV hydration for now and recheck labs in a.m. Dictated By: PENELOPE PRAKASH MD, SR/RADHA Conf#: [id number] DID#: [id number]
[2018-12-11 19:15] VITALS: BP 145/65; PULSE 82; RESP 18
[2018-12-11] MEDS: ATORVASTATIN 20 MG TAB PO SCH (20:39)
[2018-12-11] MEDS: INSULIN GLARGINE [LANTus] (100 UNITS/ML) SYG SC SCH (20:47)
[2018-12-11] MEDS: BETAMETHASONE/CLOTRIMAZOLE 15 GM CR TOP SCH (21:00)
[2018-12-12] VITALS (9 sets, daily range): BP systolic 105–178; BP diastolic 53–73; PULSE 74–88; RESP 18–20
[2018-12-12] MEDS: ACCU-CHEK XX SCH (01:42)
[2018-12-12] MEDS: PANTOPRAZOLE (EC) 40 MG TAB PO SCH (06:41)
[2018-12-12] MEDS: MEROPENEM 1 GM/50ML(PMX) 50 ML IVPB SCH ×3 (06:42→22:24)
--- NOTE | 2018-12-12 07:49 | CONS ---
Assessment/Plan Assessment/Plan Hospital Course (Demo Recall) 1) UTI due to e.coli +ESBL and possible kidney involvement due to her R flank pain CT abd/pelvis does not show hydronephrosis d/c ceftriaxone and start merrem this e.coli is sensitive to cipro and levo and so can switch to them when patient is ready for d/c I would give a 14 day course for this pt states she was treated for an UTI 2-3 months ago but could not remember what antibiotic she was on start probiotic 12/11 - improved symptoms on merrem when b/p and glucose are better controlled can switch to po bactrim (this is preferred over levaquin or cipro due to c.dif concerns) continue with antibiotics thru 12/23/1812/12 - doing well from infection standpoint, can change to po bactrim (one DS BID) at anytime and continue thru 12/23/18 2) DM hopefully with effective antibiotic for her infection her sugars will come under better control 3) HTN 4) Hx of DVT from a picc line would avoid picc line at this time Consultation Date/Type/Reason Admit Date/Time Dec 07, 2018 at 20:34 Initial Consult Date 12/10/18 Type of Consult ID Date/Time of Note DATE: 12/12/18 TIME: 07:47 24 HR Interval Summary Free Text/Dictation still with COOK, it improved with tylenol but is now coming back no N, V, D R flank pain is much better breathing is ok, no dysphagia Exam/Review of Systems Exam Vitals Vital Signs Date Temp Pulse Resp B/P (MAP) Pulse Ox O2 O2 Flow FiO2 Time Delivery Rate 12/12/18 98.1 74 18 105/53 97 02:44 (70) 12/11/18 Room Air 16:01 Intake and Output 12/11/18 12/11/18 12/12/18 1414:59 22:59 06:59 IntakeIntake Total 1090 ml 480 ml 530 ml OutputOutput Total 1 ml BalanceBalance 1090 ml 479 ml 530 ml Constitutional: alert, oriented ENMT: mucosa pink and moist Respiratory: clear to auscultation Cardiovascular: regular rate and rhythm Gastrointestinal: soft, non-tender Results Result Diagram: 12/12/18 0458 12/12/18 0458 Results 24hrs Laboratory Tests Test 12/11/18 08:22 12/11/18 12:40 12/11/18 17:58 12/11/18 20:39 Bedside Glucose 308 H 164 210 319 H Test 12/12/18 02:29 12/12/18 04:58 Bedside Glucose 171 White Blood Count 6.6 # Red Blood Count 3.45 L Hemoglobin 9.3 L Hematocrit 28.8 L Mean Corpuscular 83.5 Volume Mean Corpuscular 27.0 L Hemoglobin Mean Corpuscular 32.3 Hemoglobin Concent Red Cell 13.2 Distribution Width Platelet Count 296 Mean Platelet Volume 9.2 Immature 0.600 H Granulocytes % Neutrophils % 52.8 Lymphocytes % 35.6 Monocytes % 6.8 Eosinophils % 3.6 Basophils % 0.6 Nucleated Red Blood 0.0 Cells % Immature 0.040 H Granulocytes # Neutrophils # 3.5 Lymphocytes # 2.4 Monocytes # 0.5 Eosinophils # 0.2 Basophils # 0.0 Nucleated Red Blood 0.0 Cells # Sodium Level 141 Potassium Level 4.5 Chloride Level 108 Carbon Dioxide Level 25 Anion Gap 8 Blood Urea Nitrogen 16 Creatinine 0.89 Est Glomerular > 60 Filtrat Rate mL/min Glucose Level 136 # Calcium Level 9.6 Medications Medication Current Medications Gabapentin (Neurontin) 300 mg TID PO Last administered on 12/11/18at 20:39; Admin Dose 300 MG; Start 12/08/18 at 09:00 Atorvastatin Calcium (Lipitor) 20 mg DAILY@21 PO Last administered on 12/11/18at 20:39; Admin Dose 20 MG; Start 12/08/18 at 21:00 Ondansetron HCl (Zofran Inj) 4 mg Q4H PRN IV NAUSEA AND/OR VOMITING; Start 12/08/18 at 00:00 Acetaminophen (Tylenol Tab) 500 mg Q4H PRN PO MILD PAIN(1-3)OR ELEVATED TEMP Last administered on 12/11/18at 22:29; Admin Dose 500 MG; Start 12/08/18 at 00:00 Morphine Sulfate (morphine) 4 mg Q4H PRN IV SEVERE PAIN LEVEL 7-10; Start 12/08/18 at 00:00 Zolpidem Tartrate (Ambien) 5 mg HS PRN PO INSOMNIA; Start 12/08/18 at 00:00 Diagnostic Test (Pha) (Accu-Chek) 1 ea 02 XX Last administered on 12/11/18at 02:37; Admin Dose 1 EA; Start 12/08/18 at 02:00 Insulin Aspart (Novolog Insulin Pen) NOVOLOG *MILD* ALGORITHM WITH MEALS BEDTIME SC Last administered on 12/11/18at 20:48; Admin Dose 4 UNIT; Start 12/08/18 at 07:50 Miscellaneous Information 1 ea NOTE XX ; Start 12/07/18 at 23:45 Glucose (Glutose) 15 gm Q15M PRN PO DECREASED GLUCOSE; Start 12/07/18 at 23:45 Glucose (Glutose) 22.5 gm Q15M PRN PO DECREASED GLUCOSE; Start 12/07/18 at 23:45 Dextrose (D50w Syringe) 25 ml Q15M PRN IV DECREASED GLUCOSE; Start 12/07/18 at 23:45 Dextrose (D50w Syringe) 50 ml Q15M PRN IV DECREASED GLUCOSE; Start 12/07/18 at 23:45 Glucagon (Glucagen) 1 mg Q15M PRN IM DECREASED GLUCOSE; Start 12/07/18 at 23:45 Glucose (Glutose) 15 gm Q15M PRN BUCCAL DECREASED GLUCOSE; Start 12/07/18 at 23:45 Losartan Potassium (Cozaar) 50 mg DAILY PO Last administered on 12/11/18at 08:24; Admin Dose 50 MG; Start 12/08/18 at 09:00 Enoxaparin Sodium (Lovenox) 30 mg DAILY SC Last administered on 12/11/18at 08:28; Admin Dose 30 MG; Start 12/10/18 at 09:00 Meropenem/Sodium Chloride 50 ml @ 100 mls/hr Q8 IVPB Last administered on 12/12/18at 06:42; Admin Dose 100 MLS/HR; Start 12/10/18 at 14:00 Lactobacillus Acidophilus (Florajen3 Capsule) 1 each BID PO Last administered on 12/11/18 20:39; Admin Dose 1 EACH; Start 12/10/18 at 21:00 Pantoprazole (Protonix Tab) 40 mg DAILY@06 PO Last administered on 12/12/18at 06:41; Admin Dose 40 MG; Start 12/11/18 at 06:00 Clonidine (Catapres) 0.1 mg Q4H PRN PO SBP>180 DBP>100 Last administered on 12/10/18at 20:54; Admin Dose 0.1 MG; Start 12/10/18 at 20:30 Insulin Glargine (Lantus) 12 units DAILY@2000 SC Last administered on 12/11/18at 20:47; Admin Dose 12 UNITS; Start 12/11/18 at 20:00 Betamethasone/ Clotrimazole (Lotrisone Cr) 1 applic BID TOP ; Start 12/11/18 at 21:00 PIERRE FERRER MD Dec 12, 2018 07:49
[2018-12-12] MEDS: INSULIN ASPART [NOVOLOG] 3 ML PEN SC SCH ×4 (07:50→20:33)
[2018-12-12] MEDS: ACETAMINOPHEN 500 MG TAB PO PRN ×2 (08:42→14:31)
[2018-12-12] MEDS: LOSARTAN 50 MG TAB PO SCH (08:47)
[2018-12-12] MEDS: L ACIDOPHIL/B LACTIS/B LONGUM CAPSULE PO SCH ×2 (08:48→20:29)
--- NOTE | 2018-12-12 08:52 | PN ---
DATE: 12/12/2018 SUBJECTIVE: The patient continues to have severe headaches biparietal with no definite focal weaknes s or numbness. VITAL SIGNS: Temperature 98.7, blood pressure 178/70, O2 sat 96%. CHEST: Clinically clear. ABDOMEN: Mild flank tenderness on the right. EXTREMITIES: No edema. LABORATORY DATA: Sodium 141, potassium 4.5, BUN 16, creatinine 0.89, glucose levels stabilized at 17 1, 136 and 125 today. WBC count 6.6, hematocrit 28.8. IMPRESSION: 1. Severe cephalalgia labile hypertension. 2. Acute pyelonephritis with Escherichia coli extended-spectrum beta-lactamase. 3. Diabetes mellitus type 2, better controlled. 4. Hypertension, labile. PLAN: We will proceed with an MRI of the brain without IV contrast. Continue IV antibiotics and obs erve. Dictated By: PENELOPE PRAKASH MD SR/NTS Conf#: [id number] DID#: [id number] CC: PENELOPE PRAKASH MD;*EndCC*
[2018-12-12] MEDS: GABAPENTIN 300 MG CAP PO SCH ×3 (08:53→20:29)
[2018-12-12] MEDS: ENOXAPARIN 30 MG/0.3 ML SYG SC SCH (08:53)
[2018-12-12] MEDS: BETAMETHASONE/CLOTRIMAZOLE 15 GM CR TOP SCH ×2 (09:00→19:22)
[2018-12-12] MEDS: ATORVASTATIN 20 MG TAB PO SCH (20:29)
[2018-12-12] MEDS: INSULIN GLARGINE [LANTus] (100 UNITS/ML) SYG SC SCH (20:33)
[2018-12-13] MEDS: ACCU-CHEK XX SCH (02:00)
[2018-12-13] MEDS: INSULIN ASPART [NOVOLOG] 3 ML PEN SC SCH ×5 (02:12→21:52)
[2018-12-13] MEDS: ACETAMINOPHEN 500 MG TAB PO PRN (02:14)
[2018-12-13 02:28] VITALS: BP 150/79; PULSE 79; RESP 18
[2018-12-13] MEDS: PANTOPRAZOLE (EC) 40 MG TAB PO SCH (06:42)
[2018-12-13] MEDS: MEROPENEM 1 GM/50ML(PMX) 50 ML IVPB SCH ×3 (06:43→22:19)
[2018-12-13 08:26] VITALS: BP 143/72; PULSE 82; RESP 19
[2018-12-13] MEDS: LOSARTAN 50 MG TAB PO SCH (08:46)
[2018-12-13] MEDS: GABAPENTIN 300 MG CAP PO SCH ×4 (08:46→20:58)
[2018-12-13] MEDS: L ACIDOPHIL/B LACTIS/B LONGUM CAPSULE PO SCH ×2 (08:46→20:58)
[2018-12-13] MEDS: ENOXAPARIN 30 MG/0.3 ML SYG SC SCH (08:49)
[2018-12-13] MEDS: BETAMETHASONE/CLOTRIMAZOLE 15 GM CR TOP SCH ×2 (09:21→21:53)
--- NOTE | 2018-12-13 11:29 | PN ---
DATE: 12/13/2018 SUBJECTIVE: The patient continues to have right flank pain, mild headache. She ate dinner late last night and had some fruits as well. Blood glucose was higher. PHYSICAL EXAMINATION: GENERAL: The patient is awake, alert. VITAL SIGNS: Temperature 98.2, blood pressure 143/72. CHEST: Clinically clear. HEART: S1, S2. No definite gallops. ABDOMEN: Soft, nontender. No hepatosplenomegaly. EXTREMITIES: No edema. DIAGNOSTIC DATA: Brain MRI which was ordered, still pending. Instead MRA had been done which showed moderate stenosis of bilateral cavernous, supraclinoid and internal carotid artery segment. MRI res ults have been asked and pending at this time. IMPRESSION: 1. Acute pyelonephritis with Escherichia coli extended-spectrum beta-lactamase. 2. Recurrent cephalgia. 3. Hypertension. 4. Diabetes mellitus type 2, not adequately controlled. 5. Evidence of intracranial atherosclerosis on MRA. PLAN: We will increase the dose of losartan to 100 mg p.o. daily. Add linagliptin. Await MRI resul ts. Dictated By: PENELOPE PRAKASH MD SR/NTS Conf#: [id number] DID#: [id number]
[2018-12-13] MEDS: LINAGLIPTIN 5 MG TABLET PO SCH (12:46)
[2018-12-13 12:50] VITALS: BP 115/60; PULSE 84; RESP 18
[2018-12-13 15:11] VITALS: BP 103/68; PULSE 80; RESP 19
[2018-12-13 19:20] VITALS: BP 148/69; PULSE 83; RESP 18
[2018-12-13] MEDS: ATORVASTATIN 20 MG TAB PO SCH (20:58)
[2018-12-13] MEDS ORDERED: LOSARTAN 25 MG TAB PO ONE (21:00)
[2018-12-13] MEDS: INSULIN GLARGINE [LANTus] (100 UNITS/ML) SYG SC SCH (21:10)
[2018-12-13] MEDS ORDERED: INSULIN ASPART [NOVOLOG] 3 ML PEN SC ONE (21:30)
[2018-12-14] MEDS: ACCU-CHEK XX SCH (02:00)
[2018-12-14 02:15] VITALS: BP 125/58; PULSE 77; RESP 18
[2018-12-14] MEDS: MEROPENEM 1 GM/50ML(PMX) 50 ML IVPB SCH ×3 (06:24→21:26)
[2018-12-14] MEDS: PANTOPRAZOLE (EC) 40 MG TAB PO SCH (06:24)
--- NOTE | 2018-12-14 07:26 | CONS ---
Assessment/Plan Assessment/Plan Hospital Course (Demo Recall) 1) UTI due to e.coli +ESBL and possible kidney involvement due to her R flank pain CT abd/pelvis does not show hydronephrosis d/c ceftriaxone and start merrem this e.coli is sensitive to cipro and levo and so can switch to them when patient is ready for d/c I would give a 14 day course for this pt states she was treated for an UTI 2-3 months ago but could not remember what antibiotic she was on start probiotic 12/11 - improved symptoms on merrem when b/p and glucose are better controlled can switch to po bactrim (this is preferred over levaquin or cipro due to c.dif concerns) continue with antibiotics thru 12/23/1812/12 - doing well from infection standpoint, can change to po bactrim (one DS BID) at anytime and continue thru 12/23/1812/14 - stable on merrem (day 5/14 of treatment) can switch to po bactrim at any time and continue thru 12/23/18 I will sign off as infection is under control 2) DM hopefully with effective antibiotic for her infection her sugars will come under better control 3) HTN 4) Hx of DVT from a picc line would avoid picc line at this time 5) COOK MRI did not show any masses, but MRA did show Moderate stenosis of bilateral cavernous, and supraclinoid internal carotid artery segments COOK is improving Consultation Date/Type/Reason Admit Date/Time Dec 07, 2018 at 20:34 Initial Consult Date 12/10/18 Type of Consult ID Date/Time of Note DATE: 12/14/18 TIME: 07:22 24 HR Interval Summary Free Text/Dictation pt states her COOK is getting better no N, V, D no SOB Exam/Review of Systems Exam Vitals Vital Signs Date Temp Pulse Resp B/P (MAP) Pulse Ox O2 O2 Flow FiO2 Time Delivery Rate 12/14/18 98.0 77 18 125/58 98 02:15 (80) 12/13/18 Room Air 12:50 Intake and Output 12/13/18 12/13/18 12/14/18 1515:00 23:00 07:00 IntakeIntake Total 480 ml 520 ml 50 ml OutputOutput Total 1 ml BalanceBalance 479 ml 520 ml 50 ml Constitutional: alert, oriented Eyes: nl sclera ENMT: mucosa pink and moist Respiratory: clear to auscultation Cardiovascular: regular rate and rhythm Gastrointestinal: soft, non-tender Results Result Diagram: 12/12/1845712/12/18457 Results 24hrs Laboratory Tests Test 12/13/18 08:42 12/13/18 12:45 12/13/18 17:32 12/13/18 21:03 Bedside Glucose 185 211 257 H 310 H Test 12/14/18 02:12 Bedside Glucose 255 H Medications Medication Current Medications Gabapentin (Neurontin) 300 mg TID PO Last administered on 12/13/18at 20:58; Admin Dose 300 MG; Start 12/08/18 at 09:00 Atorvastatin Calcium (Lipitor) 20 mg DAILY@21 PO Last administered on 12/13/18at 20:58; Admin Dose 20 MG; Start 12/08/18 at 21:00 Ondansetron HCl (Zofran Inj) 4 mg Q4H PRN IV NAUSEA AND/OR VOMITING; Start 12/08/18 at 00:00 Acetaminophen (Tylenol Tab) 500 mg Q4H PRN PO MILD PAIN(1-3)OR ELEVATED TEMP Last administered on 12/13/18at 02:14; Admin Dose 500 MG; Start 12/08/18 at 00:00 Morphine Sulfate (morphine) 4 mg Q4H PRN IV SEVERE PAIN LEVEL 7-10; Start 12/08/18 at 00:00 Zolpidem Tartrate (Ambien) 5 mg HS PRN PO INSOMNIA; Start 12/08/18 at 00:00 Diagnostic Test (Pha) (Accu-Chek) 1 ea 02 XX Last administered on 12/11/18at 02:37; Admin Dose 1 EA; Start 12/08/18 at 02:00 Insulin Aspart (Novolog Insulin Pen) NOVOLOG *MILD* ALGORITHM WITH MEALS BEDTIME SC Last administered on 12/13/18at 21:52; Admin Dose 4 UNIT; Start 12/08/18 at 07:50 Miscellaneous Information 1 ea NOTE XX ; Start 12/07/18 at 23:45 Glucose (Glutose) 15 gm Q15M PRN PO DECREASED GLUCOSE; Start 12/07/18 at 23:45 Glucose (Glutose) 22.5 gm Q15M PRN PO DECREASED GLUCOSE; Start 12/07/18 at 23:45 Dextrose (D50w Syringe) 25 ml Q15M PRN IV DECREASED GLUCOSE; Start 12/07/18 at 23:45 Dextrose (D50w Syringe) 50 ml Q15M PRN IV DECREASED GLUCOSE; Start 12/07/18 at 23:45 Glucagon (Glucagen) 1 mg Q15M PRN IM DECREASED GLUCOSE; Start 12/07/18 at 23:45 Glucose (Glutose) 15 gm Q15M PRN BUCCAL DECREASED GLUCOSE; Start 12/07/18 at 23:45 Enoxaparin Sodium (Lovenox) 30 mg DAILY SC Last administered on 12/13/18 08:49; Admin Dose 30 MG; Start 12/10/18 at 09:00 Meropenem/Sodium Chloride 50 ml @ 100 mls/hr Q8 IVPB Last administered on 12/14/18 06:24; Admin Dose 100 MLS/HR; Start 12/10/18 at 14:00 Lactobacillus Acidophilus (Florajen3 Capsule) 1 each BID PO Last administered on 12/13/18at 20:58; Admin Dose 1 EACH; Start 12/10/18 at 21:00 Pantoprazole (Protonix Tab) 40 mg DAILY@06 PO Last administered on 12/14/18 06:24; Admin Dose 40 MG; Start 12/11/18 at 06:00 Clonidine (Catapres) 0.1 mg Q4H PRN PO SBP>170, or DBP>100 Last administered on 12/10/18at 20:54; Admin Dose 0.1 MG; Start 12/10/18 at 20:30 Insulin Glargine (Lantus) 12 units DAILY@2000 SC Last administered on 12/13/18at 21:10; Admin Dose 12 UNITS; Start 12/11/18 at 20:00 Betamethasone/ Clotrimazole (Lotrisone Cr) 1 applic BID TOP Last administered on 12/13/18at 21:53; Admin Dose 1 APPLIC; Start 12/11/18 at 21:00 Losartan Potassium (Cozaar) 100 mg DAILY PO ; Start 12/14/18 at 09:00 Linagliptin (Tradjenta) 5 mg DAILY PO Last administered on 12/13/18at 12:46; Admin Dose 5 MG; Start 12/13/18 at 11:00 PIERRE FERRER MD Dec 14, 2018 07:26
[2018-12-14 08:00] VITALS: BP 103/64; PULSE 76; RESP 18
[2018-12-14] MEDS: INSULIN ASPART [NOVOLOG] 3 ML PEN SC SCH ×4 (09:04→21:48)
[2018-12-14] MEDS: L ACIDOPHIL/B LACTIS/B LONGUM CAPSULE PO SCH ×2 (09:05→21:26)
[2018-12-14] MEDS: GABAPENTIN 300 MG CAP PO SCH ×3 (09:05→21:26)
[2018-12-14] MEDS: LOSARTAN 50 MG TAB PO SCH (09:05)
[2018-12-14] MEDS: ENOXAPARIN 30 MG/0.3 ML SYG SC SCH (09:05)
[2018-12-14] MEDS: BETAMETHASONE/CLOTRIMAZOLE 15 GM CR TOP SCH ×2 (09:06→21:54)
[2018-12-14] MEDS: LINAGLIPTIN 5 MG TABLET PO SCH (09:06)
[2018-12-14 15:08] VITALS: BP 127/58; PULSE 85; RESP 18
[2018-12-14 19:28] VITALS: BP 94/56; PULSE 79; RESP 18
[2018-12-14] MEDS: ATORVASTATIN 20 MG TAB PO SCH (21:26)
[2018-12-14] MEDS: INSULIN GLARGINE [LANTus] (100 UNITS/ML) SYG SC SCH (21:37)
--- NOTE | 2018-12-14 21:57 | PN ---
DATE: 12/14/2018 SUBJECTIVE: Patient continues with right flank pain. Denies any nausea, vomiting. Denies any chest pain or shortness of breath. PHYSICAL EXAMINATION: GENERAL: The patient is awake, alert. VITAL SIGNS: Temperature 98.0, blood pressure 127/58 (blood pressure has been better controlled on h igher dose of losartan 100 mg), O2 sats 96%. CHEST: Clinically clear. HEART: S1, S2 heard with no definite gallops. ABDOMEN: Mild right flank tenderness. EXTREMITIES: No edema. LABORATORY DATA: Blood glucose levels 255, 215 and 327 today. MRI of the brain reviewed, showed no acute intracranial hemorrhage, mild chronic small vessel ischemic changes and partially empty sella t urcica noted. IMPRESSION: 1. Acute pyelonephritis with Escherichia coli extended-spectrum beta-lactamase. 2. Recurrent cephalgia, improved. 3. Hypertension, better controlled. 4. Diabetes mellitus type 2, not adequately controlled. 5. Evidence of intracranial atherosclerosis on MRA. PLAN: We will increase the dose of Lantus, increase activity. Discussed diet with the patient. Dictated By: PENELOPE PRAKASH MD, SR/NTS Conf#: [id number] DID#: [id number]
[2018-12-14] MEDS: ACETAMINOPHEN 500 MG TAB PO PRN (23:13)
[2018-12-15] MEDS: ACCU-CHEK XX SCH (02:00)
[2018-12-15 02:08] VITALS: BP 133/63; PULSE 80; RESP 20
[2018-12-15] MEDS: INSULIN ASPART [NOVOLOG] 3 ML PEN SC SCH ×5 (02:09→20:35)
[2018-12-15] MEDS: MEROPENEM 1 GM/50ML(PMX) 50 ML IVPB SCH ×3 (06:42→21:22)
[2018-12-15] MEDS: PANTOPRAZOLE (EC) 40 MG TAB PO SCH (06:42)
[2018-12-15] MEDS: GABAPENTIN 300 MG CAP PO SCH ×3 (09:05→20:32)
[2018-12-15] MEDS: LINAGLIPTIN 5 MG TABLET PO SCH (09:05)
[2018-12-15] MEDS: LOSARTAN 50 MG TAB PO SCH (09:06)
[2018-12-15] MEDS: L ACIDOPHIL/B LACTIS/B LONGUM CAPSULE PO SCH ×2 (09:06→20:32)
[2018-12-15] MEDS: ENOXAPARIN 30 MG/0.3 ML SYG SC SCH (09:12)
[2018-12-15] MEDS: BETAMETHASONE/CLOTRIMAZOLE 15 GM CR TOP SCH ×2 (09:12→20:37)
[2018-12-15 14:00] VITALS: PULSE 81; RESP 17
[2018-12-15 15:30] VITALS: BP 86/50; RESP 18
[2018-12-15 16:52] VITALS: BP 112/60; PULSE 82
[2018-12-15 19:04] VITALS: BP 115/80; PULSE 95; RESP 16
[2018-12-15] MEDS: ATORVASTATIN 20 MG TAB PO SCH (20:32)
[2018-12-15] MEDS: INSULIN GLARGINE [LANTus] (100 UNITS/ML) SYG SC SCH (20:36)
[2018-12-15] MEDS ORDERED: INSULIN ASPART [NOVOLOG] 3 ML PEN SC ONE (21:00)
[2018-12-16] MEDS: ACCU-CHEK XX SCH (02:00)
[2018-12-16 02:59] VITALS: BP 117/58; PULSE 84; RESP 17
[2018-12-16] MEDS: MEROPENEM 1 GM/50ML(PMX) 50 ML IVPB SCH ×2 (05:56→14:15)
[2018-12-16] MEDS: PANTOPRAZOLE (EC) 40 MG TAB PO SCH (05:56)
[2018-12-16 07:24] VITALS: BP 118/59; RESP 18
[2018-12-16] MEDS: L ACIDOPHIL/B LACTIS/B LONGUM CAPSULE PO SCH (08:55)
[2018-12-16] MEDS: LINAGLIPTIN 5 MG TABLET PO SCH (08:55)
[2018-12-16] MEDS: GABAPENTIN 300 MG CAP PO SCH ×2 (08:55→14:15)
[2018-12-16] MEDS: LOSARTAN 50 MG TAB PO SCH (08:56)
[2018-12-16] MEDS: INSULIN ASPART [NOVOLOG] 3 ML PEN SC SCH ×2 (08:58→13:13)
[2018-12-16] MEDS: ENOXAPARIN 30 MG/0.3 ML SYG SC SCH (08:59)
[2018-12-16] MEDS: BETAMETHASONE/CLOTRIMAZOLE 15 GM CR TOP SCH (08:59)
[2018-12-16] MEDS ORDERED: CLOT15CR6 TOP (13:42)
[2018-12-16] MEDS ORDERED: LOSA50TA2 PO (13:42)
[2018-12-16] MEDS ORDERED: PANT40TA4 PO (13:42)
--- NOTE | 2018-12-16 14:12 | PN ---
DATE: 12/15/2018 SUBJECTIVE: Patient has mild right flank pains. Denies any headaches. OBJECTIVE: VITAL SIGNS: Blood pressure 132/63, O2 sats 96% on room air. CHEST: Clinically clear. HEART: S1, S2, no definite gallops. ABDOMEN: Soft. LABORATORY DATA: Blood glucose levels today 137 - 194. IMPRESSION: 1. Acute pyelonephritis with Escherichia coli. 2. Recurrent cephalgia, improved. 3. Hypertension, better controlled. 4. Diabetes mellitus type 2, better controlled. 5. Evidence of intracranial atherosclerosis. PLAN: Continue present management. Increase activity. Recheck labs in a.m. and discharge planning. Dictated By: PENELOPE PRAKASH MD SR/NTS Conf#: [id number] DID#: [id number] CC: PENELOPE PRAKASH MD;*EndCC*
[2018-12-16 15:04] VITALS: BP 116/60; PULSE 80; RESP 18
--- NOTE | 2018-12-16 22:59 | DS ---
DATE OF ADMISSION: 12/07/2018 DATE OF DISCHARGE: 12/16/2018 FINAL DIAGNOSES: 1. Acute pyelonephritis with Escherichia coli extended-spectrum beta-lactamase. 2. Hypertension. 3. Diabetes mellitus type 2. 4. Hyperlipidemia. 5. Evidence of intracranial atherosclerosis on MRA. HOSPITAL COURSE: The patient is a 68-year-old lady with a diabetic hypertensive well known to me for several years, status post prior episodes of pyelonephritis with Escherichia coli extended-spectrum beta-lactamase, who presents with severe chills, flank pains and fevers, was evaluated in the Emergen cy Room and was admitted. She had been on glipizide 10 mg b.i.d., metformin 1000 mg b.i.d., and Losa rtan hydrochlorothiazide 50/12.5 once a day. On physical exam, patient was found to be in no acute d istress with mild flank tenderness bilaterally. Initial WBC count 7.2, platelet count of 250,000. S lexa lactate 3.2. Chest x-ray showed left mid lung atelectatic changes. The patient was started on ceftriaxone and was seen by Dr. Haynes from ID standpoint. The urine cultures grew E. coli ESBL and th e patient was started on Merrem. Her blood glucose levels were uncontrolled. Blood glucose is over 300. The patient was begun on NovoLog insulin along with Lantus insulin with gradual improvement of hyperglycemia. Linagliptin was added as well. Blood cultures remain negative. The patient had recu rrent headaches, therefore, a CT of the brain was performed which was unremarkable and MRI of the bra in was obtained which was also unremarkable. MRA showed moderate stenosis of bilateral cavernous sup raclinoid internal carotid artery segments. CT of the abdomen and pelvis was obtained as well to rul e out any stones. The right lobe of the liver showed a 1.5 cm low density lesion, likely hemangioma. The patient was discharged to home in much improved condition on 12/16/2018 to rest at home for two weeks. DISCHARGE CONDITION: Much improved. MEDICATIONS WHICH ARE ADDED WOULD BE: 1. Bactrim-DS one tablet p.o. b.i.d. for 10 days. 2. Glipizide 10 mg b.i.d. 3. Metformin 1000 mg p.o. b.i.d. 4. Januvia 100 mg daily. 5. Losartan 100 mg daily. FOLLOWUP: Followup in the office in one week. Dictated By: PENELOPE PRAKASH MD, SR/RADHA Conf#: [id number] DID#: [id number]
== END 2018-12-16 15:45 | disposition home or self-care (01) | DRG 690 ==
LOC: E/R 19:54 → MS1 20:34
PROVIDERS: ADMIT Internal Medicine; ATTEND Internal Medicine
DX: N10 Acute pyelonephritis (principal); E11.65 Type 2 diabetes mellitus with hyperglycemia; I10 Essential (primary) hypertension; E78.5 Hyperlipidemia, unspecified; I67.2 Cerebral atherosclerosis; R51 Headache; B96.20 Unspecified Escherichia coli [E. coli] as the cause of diseases classified elsewhere; Z16.12 Extended spectrum beta lactamase (ESBL) resistance; Z79.84 Long term (current) use of oral hypoglycemic drugs
CPT/HCPCS: 36415; 70450; 70544; 70551; 71045; 74177; 80048; 80053; 81001; 82962; 83605; 83735; 84484; 85025; 85610; 85730; 87040; 87086; 93005; J0696; J1650; J1815; J2185; J2405; J7030; Q9967

== ENCOUNTER → 2018-12-27 | Outpatient (CLI) | payer BC ==
[~2018-12-27] MED LIST changes: +CLOT15CR6 TOP; -KEFLEX; +LOSA50TA2 PO; +PANT40TA4 PO; -VALS160T20 PO
== END | disposition home or self-care (01) ==
LOC: LAB 16:04
PROVIDERS: ATTEND Internal Medicine
DX: K85.90 Acute pancreatitis without necrosis or infection, unspecified (principal); D64.9 Anemia, unspecified; N39.0 Urinary tract infection, site not specified
CPT/HCPCS: 80053; 81003; 82150; 83690; 85025; 87086

== ENCOUNTER → 2019-04-18 | Outpatient (CLI) | payer BC | END | disposition home or self-care (01) | LOC: LAB 13:23 | PROVIDERS: ATTEND Internal Medicine | DX: E78.5 Hyperlipidemia, unspecified (principal); N39.0 Urinary tract infection, site not specified; E11.9 Type 2 diabetes mellitus without complications | CPT/HCPCS: 80053; 80061; 81003; 83036; 85025; 87086 ==

== ENCOUNTER → 2019-06-18 | Outpatient (CLI) | payer BC | END | disposition home or self-care (01) | LOC: LAB 12:45 | PROVIDERS: ATTEND Internal Medicine | DX: E11.9 Type 2 diabetes mellitus without complications (principal); E78.5 Hyperlipidemia, unspecified | CPT/HCPCS: 70450; 80053; 80061; 81003; 83036; 85025 ==